=== PATIENT | male | born 1975 | race Caucasian/White ===

== ENCOUNTER 2020-07-20 16:45 | Outpatient (CLI) | payer MEDICARE, MEDICAID, SELFPAY | END 2020-07-20 16:46 | disposition home or self-care (01) | LOC: WPT 02-13 12:08 | PROVIDERS: PCP Family Medicine; Visit Provider Family Medicine | DX: Z46.89 Encounter for fitting and adjustment of other specified devices (principal); M25.561 Pain in right knee | CPT/HCPCS: L1812 ==

== ENCOUNTER → 2020-11-22 10:23 | Outpatient (BNVA) | payer MEDICARE, MEDICAID, SELFPAY | PROVIDERS: PCP Family Medicine; Referring Provider Family Medicine; Visit Provider Physician Assistant | DX: M54.2 Cervicalgia (principal); G89.29 Other chronic pain; M47.812 Spondylosis without myelopathy or radiculopathy, cervical region; M25.78 Osteophyte, vertebrae | CPT/HCPCS: 72050 ==

== ENCOUNTER 2020-12-13 12:45 | Outpatient (CLI) | payer MEDICARE, MEDICAID, SELFPAY ==
--- NOTE | 2020-12-13 13:02 | MR_ITS ---
WS: [id number] MRI CERVICAL SPINE NONCONTRAST HISTORY: CERVICAL DISC DEGENERATION COMPARISON: None available. Technique: Multiplanar, multisequence noncontrast imaging of the cervical spine. Mild straightening of the normal cervical lordosis. No fracture or marrow edema. Signal within the cervical cord is normal. Visualized posterior fossa is unremarkable. Craniocervical junction, C1 and C2 relationship, odontoid process and soft tissues are normal. C2-C3: Normal. C3-C4: Shallow central disc protrusion without cord contact. Small bilateral foraminal osteophytes. C4-C5: Mild bilateral foraminal osteophytes without significant stenosis. C5-C6: Moderate size central to LEFT paracentral disc protrusion. Disc protrusion is contacting and d eforming the ventral thecal sac. There is an additional smaller disc osteophyte proximal RIGHT forame n. Mild central and foraminal stenosis. C6-C7: LEFT paracentral disc osteophyte protrusion causing mild deformity of the LEFT lateral thecal sac and effacement of CSF. Mild osteophytic ridging causing mild foraminal stenosis. C7-T1: Normal. Paraspinal soft tissue are normal. MR/MR cervical spin wo con* [id number] IMPRESSION: 1. Moderate size central to LEFT paracentral disc protrusion at C5-6 contactin g the ventral thecal sac and the cord with displacement. There is an additional smaller disc osteophyte complex in the proximal RIGHT foramen. There is mild c entral and bilateral foraminal stenosis due to disc and osteophyte disease. 2. Mild bilateral foraminal stenosis at C6-7. LEFT paracentral disc osteophyte at C6-7 with mild effacement of CSF. No cord contact. 3. Small bilateral foraminal osteophytes and shallow disc protrusion at C3-4.
== END 2020-12-13 12:46 | disposition home or self-care (01) ==
PROVIDERS: PCP Family Medicine; Visit Provider Physician Assistant
DX: M50.30 Other cervical disc degeneration, unspecified cervical region (principal); M50.222 Other cervical disc displacement at C5-C6 level; M25.78 Osteophyte, vertebrae; M48.02 Spinal stenosis, cervical region
CPT/HCPCS: 72141

== ENCOUNTER → 2021-03-08 12:11 | Outpatient (BNVA) | payer MEDICARE, MEDICAID, SELFPAY | PROVIDERS: PCP Family Medicine; Visit Provider Nurse Practitioner Family | DX: M17.11 Unilateral primary osteoarthritis, right knee (principal); M25.561 Pain in right knee | CPT/HCPCS: 73562 ==

== ENCOUNTER → 2021-04-17 11:40 | Outpatient (BNVA) | payer MEDICARE, MEDICAID, SELFPAY | PROVIDERS: PCP Family Medicine; Referring Provider Nurse Practitioner Family; Visit Provider Specialist | DX: M17.0 Bilateral primary osteoarthritis of knee (principal); M25.561 Pain in right knee | CPT/HCPCS: 73560; 73565 ==

== ENCOUNTER 2021-05-04 11:33 | Outpatient (CLI) | payer MEDICARE, MEDICAID, SELFPAY | END 2021-05-04 11:34 | disposition home or self-care (01) | LOC: SPT 11:34 | PROVIDERS: PCP Family Medicine; Visit Provider Specialist | DX: Z46.89 Encounter for fitting and adjustment of other specified devices (principal); M17.11 Unilateral primary osteoarthritis, right knee | CPT/HCPCS: 97760; L1851 ==

== ENCOUNTER 2021-05-31 15:26 | Outpatient (CLI) | payer MEDICARE, MEDICAID, SELFPAY ==
--- NOTE | 2021-05-31 16:00 | MR_ITS ---
WS: [id number] MRI RIGHT KNEE HISTORY: M25.561 - Pain in right knee COMPARISON: 04/17/2021 Anterior cruciate ligament: Intact. Posterior cruciate ligament: Intact. Medial collateral ligament: Fluid surrounds both sides of the MCL. No tear is identified. There is a small amount of fluid adjacent to the proximal MCL but it does appear to be external to the ligament. Posterior lateral corner structures: Intact. Medial menisci: Abnormal signal in the posterior horn. Blunting of the free edge and increased signal in the free edge is most likely a radial tear. There is increased T2 signal and soft tissue thickeni ng along the posterior medial meniscus Lateral meniscus: Very slight increased signal in the anterior horn near the site of the ACL attachme nt. Probably normal variation but in the signal. Cannot confirm a tear. Extensor mechanism: Distal quadriceps tendon and patellar tendons are intact. Fluid and soft tissue: Small suprapatellar joint effusion. Small amount of fluid at the location of Ruano's cyst. Osseous and articular structures: Patellofemoral compartment: Normal. Medial compartment: Mild narrowing of the medial compartment. There is thinning and fraying along the articular cartilage surface. No full-thickness cartilage defect or extension to the marrow. No marro w edema. Small osteophytes at the joint line. Lateral compartment: Very mild narrowing of the lateral compartment. 4 mm osteochondral defect along the tibial plateau surface. MR/MR knee RT wo con* [id number] IMPRESSION: 1. Radial tear resulting in blunting of the free edge posterior horn medial me niscus with adjacent synovitis. 2. Mild diffuse thinning and fraying of the articular cartilage of the medial compartment. 3. 4 mm osteochondral defect lateral tibial plateau. 4. Small amount of fluid surrounding the MCL. Probably related to degenerative changes in the medial compartment and not MCL sprain.
== END 2021-05-31 15:27 | disposition home or self-care (01) ==
LOC: RAD 15:33
PROVIDERS: PCP Family Medicine; Visit Provider Specialist
DX: S83.241A Other tear of medial meniscus, current injury, right knee, initial encounter (principal); X58.XXXA Exposure to other specified factors, initial encounter
CPT/HCPCS: 73721

== ENCOUNTER → 2021-07-06 09:59 | Outpatient (BNVA) | payer MEDICARE, MEDICAID, SELFPAY | PROVIDERS: PCP Family Medicine; Visit Provider Specialist | DX: M17.11 Unilateral primary osteoarthritis, right knee (principal) | CPT/HCPCS: 20610; 99213; J1100; J2795; J3301 ==

== ENCOUNTER → 2021-08-23 14:36 | Outpatient (BNVA) | payer MEDICARE, MEDICAID, SELFPAY | PROVIDERS: PCP Family Medicine; Visit Provider Family Medicine | DX: Z02.83 Encounter for blood-alcohol and blood-drug test (principal) | CPT/HCPCS: 80307 ==

== ENCOUNTER → 2021-11-09 16:36 | Outpatient (BNVA) | payer MEDICARE, MEDICAID, SELFPAY | PROVIDERS: PCP Family Medicine; Visit Provider Family Medicine | DX: E78.5 Hyperlipidemia, unspecified (principal); I10 Essential (primary) hypertension; Z79.899 Other long term (current) drug therapy | CPT/HCPCS: 80053; 80061; 83036; 83721; 84443; 85025 ==

== ENCOUNTER → 2022-02-20 08:51 | Outpatient (BNVA) | payer MEDICARE, MEDICAID, SELFPAY | PROVIDERS: PCP Family Medicine; Referring Provider Family Medicine; Visit Provider Specialist | DX: G43.711 Chronic migraine without aura, intractable, with status migrainosus (principal); M50.20 Other cervical disc displacement, unspecified cervical region; R20.2 Paresthesia of skin; M47.22 Other spondylosis with radiculopathy, cervical region | CPT/HCPCS: 99204 ==

== ENCOUNTER → 2022-06-26 09:40 | Outpatient (BNVA) | payer MEDICARE, MEDICAID, SELFPAY | PROVIDERS: PCP Family Medicine; Visit Provider Nurse Practitioner | DX: F41.9 Anxiety disorder, unspecified (principal); I10 Essential (primary) hypertension; F32.9 Major depressive disorder, single episode, unspecified; E78.5 Hyperlipidemia, unspecified | CPT/HCPCS: 80053; 80061; 83721; 84403; 84443; 85025 ==

== ENCOUNTER → 2022-07-20 13:57 | Outpatient (BNVA) | payer MEDICARE, MEDICAID, SELFPAY | PROVIDERS: PCP Family Medicine; Visit Provider Nurse Practitioner | DX: R30.0 Dysuria (principal); F41.9 Anxiety disorder, unspecified | CPT/HCPCS: 81000 ==

== ENCOUNTER 2022-07-29 13:47 | Emergency (ER) | payer MEDICARE, MEDICAID, SELFPAY ==
[2022-07-29 13:59] VITALS: BP 151/85; PULSE 82; RESP 18; TEMP 36.6; O2SAT 96; BMI 36.2
--- NOTE | 2022-07-29 14:20 | XRR_ITS ---
PROCEDURE INFORMATION: Exam: XR Left Hip Exam date and time: 07/29/2022 3:06 PM Age: 46 years old Clinical indication: Hip pain; Left hip; Additional info: Left hip pain TECHNIQUE: Imaging protocol: Radiologic exam of the left hip. Views: 2 or 3 views hip with pelvis when performed. COMPARISON: No relevant prior studies available. FINDINGS: Bones/joints: Unremarkable. No acute fracture. Hip joint appears maintained. Partially visualized hardware at the lumbosacral junction. Soft tissues: Unremarkable. XR/XR hip LT 2-3V wo/w pel* [id number] IMPRESSION: No acute findings.
--- NOTE | 2022-07-29 14:30 | ED_ITS ---
HPI - Back Pain/Injury General: Chief Complaint: Back Pain/Injury Stated Complaint: back and left hip pain Time Seen by Provider: 07/29/22 14:05 History of Present Illness: Patient is a 46-year-old male who comes to the ED with left hip pain. Patient states he has a history of chronic low back pain. Approximately a month ago he started having some pain in his left hip. It is progressed and gotten worse and he states that it feels separate than his lower back pain. He rates his pain currently 9 out of 10. He states that it feels like the pain is in his hip joint. Denies any injury or trauma to cause pain. He went and saw his PCP a couple days ago and they told him it was likely sciatica and gave him a shot of steroids. Associated symptoms: Deny abdominal pain, chills, dysuria, fatigue, fever(s), hematuria, nausea or vomiting Review of Systems Const: Denies: fever(s), chills or fatigue Eyes: Denies: change in vision or eye discomfort ENMT: Denies: throat pain, odynophagia, nasal discharge or nasal congestion Card: Denies: chest pain, palpitations, edema, swelling of feet/ankles, dyspnea on exertion or orthopnea Resp: Denies: dyspnea, productive cough or non-productive cough GI: Denies: abdominal pain, nausea, vomiting, diarrhea, constipation or hematochezia : Denies: flank pain, difficulty urinating, dysuria or hematuria Musc: Reports: extremity pain (Left hip); Denies: neck pain, back pain or extremity swelling Skin/Breast: Denies: rash or new lesions Neuro: Denies: headache(s), numbness in extremities or weakness in extremities PFSH ED PFSH: Medical History Anxiety Depression Essential hypertension Hidradenitis suppurativa Scabies infestation Tricompartment osteoarthritis of right knee Surgical History History of lumbar spinal fusion History of thoracic surgery Social History Smoking and tobacco status: current every day smoker Physical Exam Const: COMMON NORMALS: no acute distress, patient oriented x3 and alert HENMT: COMMON NORMALS: normocephalic HEAD & SCALP: normocephalic MOUTH: Normal oral and palatal mucosa present THROAT: posterior oropharynx normal and uvula midline Neck/C-Spine: COMMON NORMALS: supple GENERAL: Yes normal visual inspection Resp: COMMON NORMALS: normal respiratory effort, No retractions, No use of accessory muscles and clear to auscultation bilaterally AUSCULTATION: clear to auscultation bilaterally Cardio: COMMON NORMALS: regular rate, regular rhythm, S1 normal heart sound present, S2 normal heart sound present, No gallops present (Cardio), No clicks present (Cardio), No murmurs present (Cardio) and Peripheral pulses 2+ throughout RATE: regular rate RHYTHM: regular rhythm HEART SOUNDS: S1 normal heart sound present and S2 normal heart sound present PERIPHERAL PULSES: Peripheral pulses 2+ throughout GI: COMMON NORMALS: Normal to inspection, nondistended, normoactive bowel sounds present, Soft to palpation, non-tender and no masses PALPATION: Yes Soft to palpation : COMMON NORMALS: Yes no CVA tenderness BLADDER/KIDNEY EXAM: Yes no CVA tenderness Back/Pelvis: COMMON NORMALS: no CVA tenderness Extremity: COMMON NORMALS: normal to inspection NARRATIVE EXTREMITY EXAM: Tenderness to palpation over left greater trochanter of the hip. Neurovascular intact distally. Neuro: COMMON NORMALS: patient oriented x3 SENSORIUM/ORIENTATION: Yes alert GAIT: Yes Normal gait present Skin: GENERAL SKIN EXAM: dry skin Course Vital Signs: Vital signs: Vital Signs Temperature 97.9 F 07/29/22 13:59 Pulse Rate 82 07/29/22 13:59 Respiratory Rate 18 07/29/22 13:59 Blood Pressure 151/85 07/29/22 13:59 Pulse Oximetry 96 07/29/22 13:59 Oxygen Delivery Me thod Room Air 07/29/22 13:59 MDM - Back Pain/Injury Medical Decision Making Patient is a 46-year-old male who comes to the ED with left hip pain. Patient states he has a history of chronic low back pain. Approximately a month ago he started having some pain in his left hip. It is progressed and gotten worse and he states that it feels separate than his lower back pain. He rates his pain currently 9 out of 10. He states that it feels like the pain is in his hip joint. Denies any injury or trauma to cause pain. He went and saw his PCP a couple days ago and they told him it was likely sciatica and gave him a shot of steroids. Vitals are stable. Patient appears nontoxic in no acute distress and pain. Tenderness to palpation over left greater trochanter of the hip. Neurovascular intact distally. X-ray of left hip show no acute fractures or findings. He was given a dose of hydrocodone here in the ED to help with pain and that he was stable for discharge home. He was sent home with a prescription for meloxicam. He was diagnosed with left hip pain. Told to follow-up with his PCP within the next week for reevaluation. Return to ED precautions given. Patient understood and agreed with plan. Labs Radiology Impressions Hip/Pelvis X-Ray 07/29/22 14:20 IMPRESSION: No acute findings. Discharge Plan Discharge Patient Disposition: Home Clinical Impression: Left hip pain Condition: Stable Prescriptions: New meloxicam 15 mg tablet 15 mg PO DAILY PRN (Reason: pain) Qty: 20 0RF No Action (DME) r knee brace See Rx Instructions .Route .MEDSUPPLY Qty: 1 0RF Rx Instructions: As directed celecoxib [Celebrex] 200 mg capsule 200 mg PO DAILY Qty: 30 1RF amitriptyline 25 mg tablet 25 mg PO .nightly Qty: 90 0RF baclofen 5 mg tablet 5 mg PO TID 30 Days Qty: 90 0RF clonidine HCl 0.1 mg tablet 0.1 mg PO DAILY PRN (Reason: hypertensive emergency) 30 Days Qty: 30 0RF Rx Instructions: for SBP>180 or DBP>100 sertraline [Zoloft] 50 mg tablet 75 mg PO DAILY Qty: 45 3RF clonazepam 1 mg tablet 1 mg PO TID PRN (Reason: anxiety) 30 Days Qty: 90 0RF Rx Instructions: refill 11/04/2021 sulfamethoxazole-trimethoprim [Bactrim DS] 800-160 mg tablet 1 tab PO Q12H Qty: 14 0RF methylprednisolone [Medrol (Hieu)] 4 mg tablets,dose pack See Rx Instructions PO PER PKG DIR Qty: 21 0RF Rx Instructions: PO PER PKG DIR (DME) MEDIAL 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 CLERK BRACE See Rx Instructions .Route .MEDSUPPLY Qty: 1 0RF Rx Instructions: As directed topiramate [Topamax] 100 mg tablet 100 mg PO DAILY Qty: 30 5RF lisinopril-hydrochlorothiazide 20-25 mg tablet 1 tab PO DAILY Qty: 90 2RF rosuvastatin [Crestor] 5 mg tablet 5 mg PO DAILY Qty: 30 3RF levothyroxine 25 mcg capsule 25 mcg PO DAILY Qty: 30 1RF fenofibrate nanocrystallized 145 mg tablet 145 mg PO DAILY Qty: 30 2RF ondansetron 4 mg tablet,disintegrating 4 mg PO Q8H PRN (Reason: nausea and vomiting) Qty: 30 0RF pantoprazole [Protonix] 20 mg tablet,delayed release (DR/EC) 20 mg PO DAILY Qty: 30 0RF Discharge Orders: Discharge ED (Routine); Ordered 07/29/22 Ordered By: Navneet Valdes Referrals: Andrew Cummins MD [Primary Care Provider] - Discharge Diet: Regular Discharge Activity: Increase activity as tolerated Activity Restrictions/Additional Instructions: Follow-up with medical provider as directed in the next 5 to 7 days for reevaluation. Take medications as prescribed. Return to the ER or your medical provider if condition worsens. Please read and understand discharge instructions. Thank you for choosing [facility] for your healthcare needs today. Please realize this is an emergency room and that we are providing you with a medical screening exam and this may not be complete and all inclusive of all the testing and or work up that you may need to determine your ailment or severity of your illness. It is very important that you follow up as instructed or that you return to the Emergency Department should you have concerns or if your condition changes or worsens in any way. Coding Level of Care Code ED Con[employer] Pave[employer] Installer for Edil Sheikh
[2022-07-29] MEDS: HYDROcodone-acetaminophen 7.5-325 mg Tablet 1 TAB PO (14:53)
== END 2022-07-29 16:18 | disposition home or self-care (01) ==
PROVIDERS: Emergency Provider Physician Assistant; PCP Family Medicine
DX: M25.552 Pain in left hip (principal); I10 Essential (primary) hypertension; F17.210 Nicotine dependence, cigarettes, uncomplicated
CPT/HCPCS: 73502; 99283

== ENCOUNTER 2022-08-21 15:44 | Outpatient (CLI) | payer MEDICARE, MEDICAID, SELFPAY ==
--- NOTE | 2022-08-21 16:00 | MR_ITS ---
WS: [id number] MRI LUMBAR SPINE NONCONTRAST TECHNIQUE: Sagittal T1, T2 and STIR imaging. Axial T1 and T2 imaging. CLINICAL INFORMATION: M54.9 - Dorsalgia, unspecified COMPARISON: None. FINDINGS: Mild lumbar curve. Grade 1 anterolisthesis L4 on L5. Severe central canal stenosis L4-L5. Prior posto perative changes pedicle screw fixation L5-S1 with laminectomy defects. Partially visualized postoper ative changes in the lower thoracic spine. L1-L2: Normal. L2-L3: Mild facet arthropathy. Spinal canal and foramen are patent. L3-L4: Slight retrolisthesis. Narrowing of the LEFT subarticular recess. LEFT facet arthropathy with LEFT foraminal protrusion. Moderate LEFT foraminal narrowing. Mild RIGHT foraminal narrowing. Mild ce ntral canal stenosis at this level. L4-L5: Grade 1 anterolisthesis. Severe central canal stenosis with impingement traversing L5 nerve ro ots. Advanced facet arthropathy. Severe RIGHT foraminal narrowing. Moderate LEFT foraminal narrowing. L5-S1: Osteophytic ridging L5-S1 with bony fusion of the disc space. Impingement on the LEFT S1 nerve root in the subarticular recess. Mild LEFT foraminal narrowing. RIGHT foramen is patent. Moderate fa cet arthropathy. Visualized pelvic bony structures: Normal. Paravertebral soft tissues: Normal. Tiny central protrusion C5-C6 with slight contact of the cervical cord. Cervical spine telephone answerer imaging at MR/MR lumbar spine wo con* [id number] IMPRESSION: 1. Severe central canal stenosis L4-L5 due to disc bulging combination with gr michael 1 anterolisthesis and advanced facet arthropathy. Impingement traversing L5 nerve roots bilaterally RIGHT greater than LEFT. 2. Severe RIGHT L4-L5 foraminal narrowing. Moderate LEFT L4-L5 foraminal narro wing. 3. Subarticular disc bulging L3-L4 impinges the LEFT subarticular recess and t raversing LEFT L4 nerve root. 4. Moderate LEFT foraminal narrowing L3-L4 impinges the exiting LEFT L3 nerve root. Mild central canal stenosis at this level. 5. Disc space fusion L5-S1 with osteophytic ridging. Impingement traversing LE FT S1 nerve root in the subarticular recess. Mild LEFT L5-S1 foraminal narrowin g.
== END 2022-08-21 15:45 | disposition home or self-care (01) ==
LOC: RAD 15:47
PROVIDERS: PCP Family Medicine; Visit Provider Nurse Practitioner
DX: M48.061 Spinal stenosis, lumbar region without neurogenic claudication (principal); G89.29 Other chronic pain; M51.36 Other intervertebral disc degeneration, lumbar region; M25.78 Osteophyte, vertebrae; M43.27 Fusion of spine, lumbosacral region
CPT/HCPCS: 72148

== ENCOUNTER → 2022-09-25 16:08 | Outpatient (BNVA) | payer MEDICARE, MEDICAID, SELFPAY | PROVIDERS: PCP Family Medicine; Visit Provider Orthopaedic Surgery | DX: M48.062 Spinal stenosis, lumbar region with neurogenic claudication; Z98.1 Arthrodesis status; G89.29 Other chronic pain | CPT/HCPCS: 72110; 99214 ==

== ENCOUNTER 2022-11-29 07:25 | Outpatient (CLI) | payer MEDICARE, MEDICAID, SELFPAY ==
--- NOTE | 2022-11-29 07:15 | US_ITS ---
WS: [id number] ULTRASOUND SOFT TISSUES LEFT axilla. HISTORY: R59.1 - Generalized enlarged lymph nodes COMPARISON: None available. TECHNIQUE: 2-D and color Doppler imaging is submitted. There is a complex solid and cystic mass in the LEFT axilla corresponding to the palpable abnormality . Irregular shaped mass with some increased vascularity. Mass measures at least 3.7 x 2.4 x 3.3 cm. T he borders are slightly irregular. Mild edematous changes noted in the soft tissues. There may be jeremie e adjacent small lymph nodes. IMPRESSION: Solid mass with increased vascularity in the LEFT axilla. Corresponds to the palpable abnormality. Re commend follow-up chest CT with IV contrast. This is suspicious for a solid mass. Differential includ es abnormal lymph node, solid soft tissue mass or abscess.
== END 2022-11-29 07:26 | disposition home or self-care (01) ==
LOC: RAD 07:25
PROVIDERS: PCP Family Medicine; Visit Provider Nurse Practitioner
DX: R22.32 Localized swelling, mass and lump, left upper limb (principal)
CPT/HCPCS: 76882

== ENCOUNTER 2022-12-11 17:16 | Outpatient (CLI) | payer MEDICARE, MEDICAID, SELFPAY ==
--- NOTE | 2022-12-11 17:30 | CTR_ITS ---
PROCEDURE INFORMATION: Exam: CT Chest With Contrast; Diagnostic Exam date and time: 12/11/2022 5:29 PM Age: 47 years old Clinical indication: Mass, lump, or swelling in the chest; Additional info: R22.30 - localized swelling, mass and lump, unspecified u. . . , Ultrasound done; Shows a possible solid mass TECHNIQUE: Imaging protocol: Diagnostic computed tomography of the chest with contrast. Radiation optimization: All CT scans at this facility use at least one of these dose optimization techniques: automated exposure control; mA and/or kV adjustment per patient size (includes targeted exams where dose is matched to clinical indication); or iterative reconstruction. Contrast material: OMNI 350; Contrast volume: 95 ml; Contrast route: INTRAVENOUS (IV); REPORTING DATA: Count of CT and Cardiac NM exams in prior 12 months: This patient has received 0 known CTs and 0 known cardiac nuclear medicine studies in the 12 months prior to the current study. COMPARISON: Ultrasound soft tissue 11/29/2022. RADIATION DOSE METRICS: Total DLP (mGy-cm): 604.11 FINDINGS: Lungs: 4 x 2 mm lingular nodule image . No other nodules or infiltrates. Pleural spaces: Unremarkable. No pneumothorax. No pleural effusion. Heart: Unremarkable. No cardiomegaly. No pericardial effusion. Lymph nodes: Unremarkable. No enlarged lymph nodes. Vasculature: Unremarkable. No aortic aneurysm. Liver: Fatty liver. Gallbladder and bile ducts: Cholecystectomy clips. Spleen: Splenomegaly at least 140 mm although the spleen is incompletely visualized. Bones/joints: Fixation involving the lower dorsal spine. Soft tissues: There is a heterogeneous both cystic and solid appearing left axillary mass measuring 61 x 38 x 34 mm. Image 04/24. CT/CT chest w con* [id number] IMPRESSION: 1. Irregular cystic and solid mass left axilla. Suspicious for possible neoplastic process. Consider pathologic sampling. 2. Small lingular lung nodule peripherally. Follow-up recommendations will depend upon the pathology of the axillary lesion.
[2022-12-11] MEDS: iohexol 350 mg/mL 500 mL Btl (per mL) IV (17:35)
== END 2022-12-11 17:17 | disposition home or self-care (01) ==
PROVIDERS: PCP Family Medicine; Visit Provider Nurse Practitioner
DX: R22.32 Localized swelling, mass and lump, left upper limb (principal); R22.1 Localized swelling, mass and lump, neck
CPT/HCPCS: 71260; Q9967

== ENCOUNTER → 2023-01-10 14:01 | Outpatient (BNVA) | payer MEDICARE, MEDICAID, SELFPAY | PROVIDERS: PCP Family Medicine; Referring Provider Nurse Practitioner; Visit Provider Surgery | DX: R59.1 Generalized enlarged lymph nodes (principal) | CPT/HCPCS: 80053; 85025; 99205 ==

== ENCOUNTER 2023-01-23 10:51 | Outpatient (CLI) | payer MEDICARE, MEDICAID, SELFPAY ==
--- NOTE | 2023-01-23 | US_ITS ---
WS: [id number] ULTRASOUND GUIDED BIOPSY LEFT AXILLARY MASS. ULTRASOUND-GUIDED ASPIRATION POSSIBLE ABSCESS LEFT AXILLA. HISTORY: Mass of axilla Procedure, risks, and complications are explained to the patient. Consent was obtained. Skin is clean sed with ChloraPrep and anesthetized with 1% buffered lidocaine. After reviewing the prior imaging studies suspicious for abscess in the LEFT axilla along with comple x soft tissue mass which could be an abnormal lymph node. Multiple core biopsies are performed of the complex mass in the LEFT axilla. Small core biopsies are performed and placed in RPMI for lymph node analysis. Additional multiple core biopsies are performed and placed in formalin. Additional aspirate is obtained. The aspirate is puslike and very turbid. Specimen placed in a separa te sterile container for culture, sensitivity and Gram stain. Patient tolerated the procedure well. IMPRESSION: 1. Uncomplicated core biopsy LEFT axillary mass. Specimen will be sent for lymph node analysis and fo r histopathology. 2. Additional aspirate was obtained as this mass was suspicious for an abscess. Pus material was drai praveen. At least 10 cc were drained. Culture and sensitivity and Gram stain will be obtained.
[2023-01-24 14:27] LABS: Lymphoma Profile (BBPL) See Report
== END 2023-01-23 10:52 | disposition home or self-care (01) ==
PROVIDERS: PCP Family Medicine; Visit Provider Surgery
DX: R22.32 Localized swelling, mass and lump, left upper limb (principal); I96 Gangrene, not elsewhere classified
CPT/HCPCS: 19000; 38505; 76942; 87070; 87075; 87205; 88184; 88185; 88307

== ENCOUNTER → 2023-02-13 10:07 | Outpatient (BNVA) | payer MEDICARE, MEDICAID, SELFPAY | PROVIDERS: PCP Family Medicine; Visit Provider Nurse Practitioner Family | DX: R07.9 Chest pain, unspecified (principal); R07.89 Other chest pain; I10 Essential (primary) hypertension; R91.1 Solitary pulmonary nodule | CPT/HCPCS: 93005 ==

== ENCOUNTER → 2023-05-14 10:44 | Outpatient (BNVA) | payer MEDICARE, MEDICAID, SELFPAY | PROVIDERS: PCP Family Medicine; Visit Provider Nurse Practitioner Family | DX: M67.921 Unspecified disorder of synovium and tendon, right upper arm (principal); M25.529 Pain in unspecified elbow; G89.29 Other chronic pain | CPT/HCPCS: 73080 ==

== ENCOUNTER → 2023-07-03 14:09 | Outpatient (BNVA) | payer MEDICARE, MEDICAID, SELFPAY | PROVIDERS: PCP Family Medicine; Visit Provider Specialist | DX: M67.921 Unspecified disorder of synovium and tendon, right upper arm (principal); M25.521 Pain in right elbow; G89.29 Other chronic pain; M19.021 Primary osteoarthritis, right elbow | CPT/HCPCS: 73080; 99214 ==

== ENCOUNTER → 2023-08-12 11:53 | Outpatient (BNVA) | payer MEDICARE, MEDICAID, SELFPAY | PROVIDERS: PCP Family Medicine; Visit Provider Nurse Practitioner Family | DX: S93.402A Sprain of unspecified ligament of left ankle, initial encounter (principal); X58.XXXA Exposure to other specified factors, initial encounter | CPT/HCPCS: 73610 ==

== ENCOUNTER 2023-12-17 17:32 | Emergency (ER) | payer MEDICARE, MEDICAID, SELFPAY ==
[2023-12-17] VITALS (10 sets, daily range): BP systolic 130–199; BP diastolic 73–108; PULSE 71–101; RESP 16–22; TEMP 36.7; O2SAT 95–100; BMI 34.4
--- NOTE | 2023-12-17 17:49 | XRR_ITS ---
PROCEDURE INFORMATION: Exam: XR Chest Exam date and time: 12/17/2023 6:13 PM Age: 48 years old Clinical indication: Other: Weakness TECHNIQUE: Imaging protocol: Radiologic exam of the chest. Views: 1 view. COMPARISON: CT chest w con* [id number] 12/11/2022 5:29 PM FINDINGS: Lungs: Unremarkable. No consolidation. Pleural spaces: Unremarkable. No pleural effusion. No pneumothorax. Heart/Mediastinum: Unremarkable. No cardiomegaly. Bones/joints: Unremarkable. XR/XR chest 1V portable [id number] IMPRESSION: As above.
--- NOTE | 2023-12-17 17:53 | CTR_ITS ---
PROCEDURE INFORMATION: Exam: CT Abdomen And Pelvis With Contrast Exam date and time: 12/17/2023 6:39 PM Age: 48 years old Clinical indication: Abdominal pain; Prior surgery; Surgery date: 6+ months; Surgery type: Lumbar fusion; Additional info: Abd pain TECHNIQUE: Imaging protocol: Computed tomography of the abdomen and pelvis with contrast. Radiation optimization: All CT scans at this facility use at least one of these dose optimization techniques: automated exposure control; mA and/or kV adjustment per patient size (includes targeted exams where dose is matched to clinical indication); or iterative reconstruction. Contrast material: OMNI 350; Contrast volume: 100 ml; Contrast route: INTRAVENOUS (IV); COMPARISON: CR XR hip LT 2-3V wo/w pel* [id number] 07/29/2022 3:06 PM RADIATION DOSE METRICS: Total DLP (mGy-cm): 954.43 FINDINGS: Lungs: Stable 5 mm right lower lobe pulmonary nodule. Liver: Hepatic steatosis. Otherwise the liver is unremarkable. Gallbladder and biliary ducts: Status post cholecystectomy. Pancreas: Normal. No ductal dilation. Spleen: Normal. No splenomegaly. Adrenal glands: Normal. No mass. Kidneys and ureters: Bilateral nonobstructing renal calculi. Stomach and bowel: Sigmoid diverticulosis without adjacent fat stranding. No bowel obstruction. Moderate amount of retained stool in the colon from constipation. Appendix: No evidence of appendicitis. Intraperitoneal space: Unremarkable. No free air. No significant fluid collection. Vasculature: Unremarkable. No abdominal aortic aneurysm. Lymph nodes: Unremarkable. No enlarged lymph nodes. Urinary bladder: Unremarkable as visualized. Reproductive: Unremarkable as visualized. Bones/joints: Multilevel degenerative changes of the visualized spine. Posterior fusion hardware is present within the lower thoracic and lower lumbar spine . No definite perihardware lucencies.. Soft tissues: Unremarkable. CT/CT abdomen pelvis w con* [id number] IMPRESSION: No acute intra-abdominal or intrapelvic process. Incidental/chronic findings as above.
--- NOTE | 2023-12-17 17:55 | W.ED.WEAKNES ---
HPI - Weakness General: Chief complaint: Weakness Stated complaint: covid symptoms Time Seen by Provider: 12/17/23 17:49 Source: patient Mode of arrival: ambulatory Limitations: no limitations History of Present Illness: 48-year-old male who states that over the last month he has been having bodyaches he states he has been having abdominal pain he states is also had some dysuria along with vomiting and diarrhea. He states he is seen at [facility] month ago was diagnosed UTI but states he has not had any improvement he denies any fever he states she is feels very weak tired he does smoke weed daily. Denies any high fevers. Associated symptoms: Reports chills, dysuria, nausea and vomiting; Denies chest pain, fever(s) or headache(s) Review of Systems Const: Reports: chills, body aches, change in appetite and fatigue; Denies: fever(s) Eyes: Denies: blurry vision or eye discomfort ENMT: Denies: throat pain or dental pain Card: Denies: chest pain Resp: Denies: dyspnea GI: Reports: abdominal pain, nausea, vomiting and diarrhea : Reports: dysuria Musc: Reports: back pain; Denies: neck pain Skin/Breast: Denies: rash Neuro: Denies: headache(s) PFSH ED PFSH: Medical History BPH associated with nocturia Hydrocele, bilateral Low back pain Elevated serum creatinine Left ankle sprain Arthritis of elbow, right, degenerative Chronic elbow pain Tendinopathy of right elbow Excessive cerumen in left ear canal Nasal congestion Otitis media, unspecified, bilateral Lung nodule Chest pain Tricompartment osteoarthritis of right knee Scabies infestation Essential hypertension Depression Anxiety Surgical History (Updated 09/24/23 @ 14:58 by ANGELES Chin) Hx of colonoscopy 2-3 yrs ago History of lumbar spinal fusion History of thoracic surgery Family History Father Cancer colon cancer Mother Cancer lung Breast cancer Social History Smoking and tobacco/nicotine status: never used tobacco/nicotine Physical Exam Const: COMMON NORMALS: no acute distress, patient oriented x3 and healthy appearing HENMT: COMMON NORMALS: normocephalic and atraumatic HEAD & SCALP: normocephalic and atraumatic Neck/C-Spine: COMMON NORMALS: full ROM and supple Chest: COMMONS NORMALS: normal inspection of the chest Resp: COMMON NORMALS: normal respiratory effort, No retractions, No use of accessory muscles and clear to auscultation bilaterally AUSCULTATION: clear to auscultation bilaterally Cardio: COMMON NORMALS: regular rate, regular rhythm and No murmurs present (Cardio) RATE: regular rate RHYTHM: regular rhythm GI: COMMON NORMALS: Normal to inspection, nondistended, normoactive bowel sounds present, Soft to palpation, non-tender and no masses PALPATION: Yes Soft to palpation Extremity: COMMON NORMALS: normal to inspection and full ROM Neuro: COMMON NORMALS: patient oriented x3, moves all extremities and no focal motor deficits Psych: COMMON NORMALS: mental status grossly normal, Normal thought process present and cooperative THOUGHT PROCESS: Normal thought process present Skin: COMMON NORMALS: no rashes or lesions noted and no wounds GENERAL SKIN EXAM: no rashes or lesions noted Course Vital Signs: Vital signs: Vital Signs Temperature 98.0 F 12/17/23 17:40 Pulse Rate 101 H 12/17/23 21:38 Respiratory Rate 16 12/17/23 21:38 Blood Pressure 130/73 12/17/23 21:38 Pulse Oximetry 98 12/17/23 21:38 Oxygen Delivery Me thod Room Air 12/17/23 21:00 MDM - Weakness Medical Decision Making Patient presents here with generalized weakness along with back pain and fatigue it has been going on for months blood work heart enzymes imaging here is all normal his blood pressure has improved here he does take blood pressure meds at home we will get him follow-up with Dr. Bailey he is to return if he worsening he understands agrees to plan. Medical Records I reviewed the patient's medical records. Lab Data I reviewed the patient's lab results. 12/17/23 19:07 12/17/23 19:07 Radiology Impressions Chest X-Ray 12/17/23 17:49 IMPRESSION: As above. Abdomen/Pelvis CT 12/17/23 17:53 IMPRESSION: No acute intra-abdominal or intrapelvic process. Incidental/chronic findings as above. Laboratory Results WBC 10.75 10^3/uL (3.29-11.43) 12/17/23 19:07 RBC 4.28 10^6/uL (3.85-5.65) 12/17/23 19:07 Hgb 12.30 g/dL (11.27-16.99) 12/17/23 19:07 Hct 38.8 % (37-53) 12/17/23 19:07 MCV 90.7 fl (82-101) 12/17/23 19:07 MCH 28.7 pg (27-33) 12/17/23 19:07 MCHC 31.7 g/dL (30-55) 12/17/23 19:07 RDW 12.8 % (12.1-15.1) 12/17/23 19:07 Plt Count 249 10^3/cmm (157-399) 12/17/23 19:07 MPV 10.5 fL (7.4-10.4) H 12/17/23 19:07 Neut % (Auto) 66.7 % 12/17/23 19:07 Lymph % (Auto) 25.4 % 12/17/23 19:07 Atkinson % (Auto) 7.3 % 12/17/23 19:07 Eos % (Auto) 0.1 % 12/17/23 19:07 Baso % (Auto) 0.2 % 12/17/23 19:07 Neut # (Auto) 7.17 10^3/uL (1.8-7.7) 12/17/23 19:07 Lymph # (Auto) 2.7 10^3/uL (0.8-4.8) 12/17/23 19:07 Atkinson # (Auto) 0.8 10^3/uL (0.2-0.9) 12/17/23 19:07 Eos # (Auto) 0.0 10^3/uL (0.0-0.8) 12/17/23 19:07 Baso # (Auto) 0.0 10^3/uL (0.0-0.1) 12/17/23 19:07 Nucleated RBC % (auto) 0 % 12/17/23 19:07 Nucleated RBCs # 0.0 /100WBC 12/17/23 19:07 Sodium 137 mmol/L (136-145) 12/17/23 19:07 Potassium 3.9 mmol/L (3.5-5.1) 12/17/23 19:07 Chloride 105 mmol/L (98-107) 12/17/23 19:07 Carbon Dioxide 23 mmol/L (22-29) 12/17/23 19:07 Anion Gap 12.9 (5-19) 12/17/23 19:07 BUN 11 mg/dL (6-20) 12/17/23 19:07 Creatinine 1.0 mg/dL (0.7-1.2) 12/17/23 19:07 GFR Calculation 80.4 mL/min (90-130) L 12/17/23 19:07 Glucose 84 mg/dL (65-115) 12/17/23 19:07 Calculated Osmolality 283 mOsm/kg (285-295) L 12/17/23 19:07 Calcium 8.4 mg/dL (8.5-10.5) L 12/17/23 19:07 Total Bilirubin 0.5 mg/dL (0.15-1.2) 12/17/23 19:07 AST 18 U/L (0-40) 12/17/23 19:07 ALT 29 U/L (0-41) 12/17/23 19:07 Alkaline Phosphatase 98 U/L (40-130) 12/17/23 19:07 Troponin T Baseline < 6 ng/L (0-15) 12/17/23 19:07 Troponin T 120 Minute 7.07 ng/L (0-15) 12/17/23 20:55 Delta Troponin T 1.84664 ABS# (0-10) 12/17/23 20:55 Total Protein 6.2 g/dL (6.6-8.7) L 12/17/23 19:07 Albumin 4.0 g/dL (3.5-5.2) 12/17/23 19:07 Globulin 2.2 g/dL (1.3-4.6) 12/17/23 19:07 Lipase 30 U/L (13-60) 12/17/23 19:07 TSH 0.70 uIU/mL (0.27-4.20) 12/17/23 19:07 Urine Color Yellow (Yellow) 12/17/23 19:00 Urine Appearance Clear (CLEAR) 12/17/23 19:00 Urine pH 7.5 (5-7) 12/17/23 19:00 Ur Specific [place] 1.055 (1.005-1.030) H 12/17/23 19:00 Urine Protein Negative (Negative) 12/17/23 19:00 Urine Glucose (UA) Negative (Normal) 12/17/23 19:00 Urine Ketones Negative (Negative) 12/17/23 19:00 Urine Blood Negative (Negative) 12/17/23 19:00 Urine Nitrate Negative (Negative) 12/17/23 19:00 Urine Bilirubin Negative (Negative) 12/17/23 19:00 Urine Urobilinogen 1.0 mg/dL (Negative) 12/17/23 19:00 Ur Leukocyte Esterase Negative (Negative) 12/17/23 19:00 Urine RBC 0-2 /hpf (0-2) 12/17/23 19:00 Urine WBC 0-5 /hpf (0-5) 12/17/23 19:00 Ur Squamous Epith Cells 0-5 /hpf (0-5) 12/17/23 19:00 Amorphous Sediment Not Reportable 12/17/23 19:00 Urine Bacteria None seen /hpf (NONE) 12/17/23 19:00 Hyaline Casts 0.81 /lpf 12/17/23 19:00 Coronavirus (PCR) Negative (Negative) 12/17/23 18:15 Influenza A (PCR) Negative (Negative) 12/17/23 18:15 Influenza Type B (PCR) Negative (Negative) 12/17/23 18:15 RSV (PCR) Negative (Negative) 12/17/23 18:15 All radiology interpretation(s) finalized by discharge EKG Data EKG 1: I personally reviewed and interpreted this EKG as follows: EKG interpretation date: 12/17/23 EKG interpretation time: 17:56 Interpretation: nsr hr [address] elevation qrs 106 qtc 394 EKG 2: I personally reviewed and interpreted this EKG as follows: EKG interpretation date: 12/17/23 EKG interpretation time: 20:01 Interpretation: nsr hr [address] or t wave abnormalities qrs 108 qtc 414 Discharge Plan Discharge Patient Disposition: Home Clinical Impression: Weakness Chronic back pain Qualifiers: Back pain location: low back pain Back pain laterality: unspecified Sciatica presence: with sciatica Sciatica laterality: bilateral sciatica Qualified Code(s): M54.41 - Lumbago with sciatica, right side Condition: Stable Prescriptions: No Action (DME) r knee brace See Rx Instructions .Route .MEDSUPPLY Qty: 1 0RF Rx Instructions: As directed sertraline [Zoloft] 50 mg tablet 75 mg PO DAILY Qty: 45 3RF telmisartan [Micardis] 40 mg tablet 40 mg PO DAILY Qty: 90 1RF fluticasone propionate 50 mcg/actuation spray,suspension 2 spray intranasal BID 30 Days Qty: 16 0RF Rx Instructions: 2 sprays each nostril BID 1 wk, then 1 spray daily 1 week, then PRN tamsulosin [Flomax] 0.4 mg capsule 0.4 mg PO DAILY 30 Days Qty: 30 1RF clonazepam 1 mg tablet 1 mg PO TID PRN (Reason: anxiety attack) Qty: 60 2RF diclofenac sodium 1 % gel 2 g topical QID meloxicam 15 mg tablet 15 mg PO DAILY 30 Days Qty: 30 1RF Rx Instructions: Do Not take with any other NSAIDs prednisone 20 mg tablet 20 mg PO DAILY Qty: 20 1RF Rx Instructions: 3 tabs a day for 3 days then 2 tabs a day for 3 days then 1 tab a day for 5 days (DME) 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 See Rx Instructions .Route .MEDSUPPLY Qty: 1 0RF Rx Instructions: As directed topiramate [Topamax] 100 mg tablet 100 mg PO DAILY Qty: 30 5RF rosuvastatin [Crestor] 5 mg tablet 5 mg PO DAILY Qty: 30 3RF fenofibrate nanocrystallized 145 mg tablet 145 mg PO DAILY Qty: 30 2RF baclofen 5 mg tablet See Rx Instructions .ROUTE .COMPLEX Qty: 90 0RF Dose Instruction: TAKE 1 TABLET BY MOUTH 3 TIMES DAILY FOR 30 DAYS Rx Instructions: TAKE 1 TABLET BY MOUTH 3 TIMES DAILY FOR 30 DAYS hydroxyzine HCl 25 mg tablet 25 mg PO TID PRN (Reason: itching) 15 Days Qty: 45 0RF Rx Instructions: Do not take with Clonazepam. Watch for increased drowsiness ondansetron 4 mg tablet,disintegrating 4 mg PO Q8H PRN (Reason: nausea and vomiting) Qty: 20 0RF Discharge Orders: Discharge ED (Routine); Ordered 12/17/23 Ordered By: Paige Stockton Referrals: Bill Bailey DO [Physician] - 4-7 days Vinny Hsu FNP [Primary Care Provider] - Discharge Diet: Advance as tolerated Discharge Activity: Resume usual activity Patient Instructions: Weakness (ED), Back Pain (ED) Coding Level of Care Code ED Profiling Machine Setup Operator for Chg Fwd Related Data Home Medications Medication Instructions Recorded Confirmed diclofenac sodium 1 % topical gel 2 g topical QID 08/12/23 11/15/23 Previous Rx's Medication Instructions Recorded r knee brace #1 ea 07/20/20 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 #1 ea 05/04/21 topiramate 100 mg tablet (Topamax) 100 mg PO DAILY #30 tabs 02/22/22 sertraline 50 mg tablet (Zoloft) 75 mg (1.5 x 50 mg) PO DAILY #45 05/29/22 tabs fenofibrate nanocrystallized 145 145 mg PO DAILY #30 tabs 06/27/22 mg tablet rosuvastatin 5 mg tablet (Crestor) 5 mg PO DAILY #30 tabs 06/27/22 telmisartan 40 mg tablet (Micardis) 40 mg PO DAILY #90 tabs 02/13/23 baclofen 5 mg tablet See Rx Instructions .Route 03/01/23 .COMPLEX #90 tabs hydroxyzine HCl 25 mg tablet 25 mg PO TID PRN itching 15 days 03/07/23 #45 tabs fluticasone propionate 50 2 spray intranasal BID allergy 03/26/23 mcg/actuation nasal symptoms 30 days #16 grams spray,suspension meloxicam 15 mg tablet 15 mg PO DAILY 30 days #30 tabs 08/12/23 prednisone 20 mg tablet 20 mg PO DAILY #20 tabs 09/24/23 clonazepam 1 mg tablet 1 mg PO TID PRN anxiety attack #60 11/15/23 tabs tamsulosin 0.4 mg capsule (Flomax) 0.4 mg PO DAILY 30 days #30 caps 11/15/23 ondansetron 4 mg disintegrating 4 mg PO Q8H PRN nausea and 12/03/23 tablet vomiting #20 tabs Allergies Allergy/AdvReac Type Severity Reaction Status Date / Time No Known Allergies Allergy Verified 12/17/23 17:46
--- NOTE | 2023-12-17 17:56 | ECG_ITS ---
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 Measurements Intervals [address] Rate: 64 P: 54 WV: 157 QRS: -25 QRSD: 106 T: 50 QT: 384 QTc: 399 Interpretive Statements SINUS RHYTHM BORDERLINE LEFT AXIS DEVIATION [QRS AXIS < -20] No previous ECG available for comparison Electronically Signed On 12-19-2023 22:00:47 CLINICAL VETERINARIAN by Bekah Rodriguez M.D. [id number]
[2023-12-17] MEDS: sodium chloride 0.9% 1,000 ML 999 ML IV (18:14)
[2023-12-17] MEDS: iohexol 350 mg/mL 500 mL Btl (per mL) IV (18:50)
[2023-12-17 19:01] LABS: Covid PCR NEGATIVE (Negative); Influenza A NEGATIVE (Negative); Influenza B NEGATIVE (Negative); Respiratory Syncytial Virus Ce NEGATIVE (Negative)
[2023-12-17 19:19] LABS: Basophils % 0.2 %; Eosinophils % 0.1 %; Hematocrit 38.8 % (37-53); Lymphocytes # 2.7 10^3/uL (0.8-4.8); Lymphocytes % 25.4 %; Mean Corpuscular HGB Conc 31.7 g/dL (30-55); Mean Corpuscular Hemoglobin 28.7 pg (27-33); Mean Corpuscular Volume 90.7 fl (82-101); Mean Platelet Volume 10.5 fL (7.4-10.4); Monocytes # 0.8 10^3/uL (0.2-0.9); Monocytes % 7.3 %; Neutrophils # 7.17 10^3/uL (1.8-7.7); Neutrophils % 66.7 %; Nucleated Red Blood Cells % 0 %; Platelet Count 249 10^3/cmm (157-399); Red Blood Count 4.28 10^6/uL (3.85-5.65); Red Cell Distribution Width 12.8 % (12.1-15.1); White Blood Count 10.75 10^3/uL (3.29-11.43)
[2023-12-17 19:21] LABS: Bilirubin Urine Negative (Negative); Blood Urine Negative (Negative); Glucose Urine UA Negative (Normal); Ketones Urine Negative (Negative); Leukocyte Esterase Urine Negative (Negative); Nitrate Urine Negative (Negative); Protein Urine Negative (Negative); Urine Appearance Clear (CLEAR); Urine Color Yellow (Yellow); pH Urine 7.5 (5-7)
[2023-12-17 19:25] LABS: Add Urine Microscopic? YES; Bacteria Urine None Seen /hpf; Hyaline Casts Urine 0.81 /lpf; RBC Urine 0-2 /hpf (0-2); Squamous Epithelial Cell Urine 0-5 /hpf (0-5); WBC Urine 0-5 /hpf (0-5)
[2023-12-17] MEDS: hyDRALAzine 20 mg/mL INJ 1 mL 10 MG IVP (19:30)
[2023-12-17 19:31] LABS: Specific Gravity, Urine 1.055 (1.005-1.030)
[2023-12-17 19:32] LABS: Add Urine Culture? No
[2023-12-17] MEDS: diphenhydrAMINE 50 mg/mL SDV 1mL IVP (20:00)
--- NOTE | 2023-12-17 20:01 | ECG_ITS ---
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 Measurements Intervals [place] Rate: 79 P: 56 OR: 160 QRS: -22 QRSD: 108 T: 64 QT: 379 QTc: 437 Interpretive Statements SINUS RHYTHM BORDERLINE LEFT AXIS DEVIATION [QRS AXIS < -20] Compared to ECG 12/17/2023 17:56:56 No significant changes Electronically Signed On 12-19-2023 22:00:55 INSTANT POTATO PROCESSING SUPERVISOR by Bekah Rodriguez M.D. [id number]
--- NOTE | 2023-12-17 20:01 | PC.NURSE ---
Pt c/o burning sensation t/o body stating I'm having an allergic reaction to that ct stuff or whatever you just gave me. Pt CT scan was at 1753, IV med push was at 1930. Dr. Stockton notified, new order given. Pt upset at first stating I know my body somethings wrong just tell me what's wrong. I'm burning up hot, but my body is cold. Dr. Stockton notified.
[2023-12-17 20:14] LABS: Alanine Aminotransferase 29 U/L (0-41); Alkaline Phosphatase 98 U/L (40-130); Anion Gap 12.9 (5-19); Aspartate Amino Transferase 18 U/L (0-40); Blood Urea Nitrogen 11 mg/dL (6-20); Calcium 8.4 mg/dL (8.5-10.5); Carbon Dioxide 23 mmol/L (22-29); Chloride 105 mmol/L (98-107); Creatinine Clr Calc Pharmacy 114.0335; Globulin 2.2 g/dL (1.3-4.6); Glomerular Filtration Rate 80.4 mL/min (90-130); Glucose 84 mg/dL (65-115); Lipase 30 U/L (13-60); Osmolality Calculated 283 mOsm/kg (285-295); Potassium 3.9 mmol/L (3.5-5.1); Sodium 137 mmol/L (136-145); Total Bilirubin 0.5 mg/dL (0.15-1.2); Total Protein 6.2 g/dL (6.6-8.7)
[2023-12-17 21:08] LABS: Troponin(5th) Baseline < 6 ng/L (0-15)
[2023-12-17 21:22] LABS: Troponin 5 2HR 7.07 ng/L (0-15); Troponin 5 2HR Delta 1.07001 ABS# (0-10)
== END 2023-12-17 21:47 | disposition home or self-care (01) ==
PROVIDERS: Emergency Provider Emergency Medicine; PCP Nurse Practitioner Family
DX: R53.1 Weakness (principal); M54.41 Lumbago with sciatica, right side; Z79.1 Long term (current) use of non-steroidal anti-inflammatories (NSAID); Z11.52 Encounter for screening for COVID-19
CPT/HCPCS: 0241U; 36415; 71045; 74177; 80053; 81001; 83690; 84443; 84484; 85025; 93005; 96361; 96374; 96375; 99285; J0360; J1200; J7030

== ENCOUNTER → 2023-12-19 14:36 | Outpatient (BNVA) | payer MEDICARE, MEDICAID, SELFPAY | PROVIDERS: PCP Nurse Practitioner Family; Visit Provider Orthopaedic Surgery | DX: M54.50 Low back pain, unspecified (principal); G89.29 Other chronic pain | CPT/HCPCS: 36415; 72110; 80053; 81001; 85025; 99214 ==

== ENCOUNTER → 2024-02-20 12:48 | Outpatient (BNVA) | payer MEDICARE, MEDICAID, SELFPAY | PROVIDERS: PCP Nurse Practitioner Family; Visit Provider Orthopaedic Surgery | DX: M48.062 Spinal stenosis, lumbar region with neurogenic claudication (principal) | CPT/HCPCS: 99214 ==

== ENCOUNTER 2024-02-28 21:13 | Emergency (ER) | payer MEDICARE, MEDICAID, SELFPAY ==
[2024-02-28] VITALS (11 sets, daily range): BP systolic 174–190; BP diastolic 89–111; PULSE 85–91; RESP 16–20; TEMP 36.6; O2SAT 94–97; BMI 35.9
--- NOTE | 2024-02-28 21:20 | XRR_ITS ---
PROCEDURE INFORMATION: Exam: XR Thoracic Spine Exam date and time: 02/28/2024 9:32 PM Age: 48 years old Clinical indication: Pain in thoracic spine; Patient HX: Fusion; Additional info: Upper/lower back pain post fall TECHNIQUE: Imaging protocol: Radiologic exam of the thoracic spine. Views: 3 views. COMPARISON: CR XR lumbar spine 2-3V* [id number] 02/28/2024 9:32 PM FINDINGS: Bones/joints: Posterior fusion hardware T11 and T12 without evidence of hardware failure or loosening. The disc spaces are maintained. No fracture or listhesis. Soft tissues: Unremarkable. XR/XR thoracic spine 2V [id number] IMPRESSION: 1. Posterior fusion hardware T11 and T12 without evidence of hardware failure or loosening. 2. The disc spaces are maintained. 3. No fracture or listhesis.
--- NOTE | 2024-02-28 21:20 | XRR_ITS ---
PROCEDURE INFORMATION: Exam: XR Lumbosacral Spine Exam date and time: 02/28/2024 9:32 PM Age: 48 years old Clinical indication: Pain; Lumbago; Prior surgery; Surgery date: 6+ months; Surgery type: Fusion; Additional info: Fall pain TECHNIQUE: Imaging protocol: Radiologic exam of the lumbosacral spine. Views: 2 or 3 views. COMPARISON: CR XR lumbar spine min 4V [id number] 12/19/2023 2:38 PM FINDINGS: Bones/joints: Posterior fusion hardware at L5-S1 without evidence of hardware failure or loosening. Prominent anterior disc osteophytes at L1-L2, L2-L3, L3-L4 and L4-L5. Soft tissues: Unremarkable. XR/XR lumbar spine 2-3V* [id number] IMPRESSION: 1. Posterior fusion hardware at L5-S1 without evidence of hardware failure or loosening. 2. Prominent anterior disc osteophytes at L1-L2, L2-L3, L3-L4 and L4-L5.
--- NOTE | 2024-02-28 21:20 | CTR_ITS ---
PROCEDURE INFORMATION: Exam: CT Left Upper Extremity Without Contrast, Shoulder Exam date and time: 02/28/2024 9:55 PM Age: 48 years old Clinical indication: Injury or trauma; Blunt trauma (contusions or hematomas); Patient HX: EMS arrival for fall at home. C/O left shoulder pain; Additional info: Fall pain TECHNIQUE: Imaging protocol: Computed tomography of the left upper extremity without contrast. Exam focused on the shoulder. Radiation optimization: All CT scans at this facility use at least one of these dose optimization techniques: automated exposure control; mA and/or kV adjustment per patient size (includes targeted exams where dose is matched to clinical indication); or iterative reconstruction. COMPARISON: CT cervical spin wo con* [id number] 02/28/2024 9:52 PM RADIATION DOSE METRICS: Total DLP (mGy-cm): 554.61 FINDINGS: Bones/joints: There is a 4 mm bony density just anterior to the anterior wall of the glenoid which may represent a small avulsed fracture (series 4, image 39). Soft tissues: Normal. CT/CT shoulder LT wo con* [id number] IMPRESSION: There is a 4 mm bony density just anterior to the anterior wall of the glenoid which may represent a small avulsed fracture (series 4, image 39).
--- NOTE | 2024-02-28 21:20 | ED_ITS ---
HPI - Fall General: Chief Complaint: Fall Stated Complaint: FALL Time Seen by Provider: 02/28/24 21:16 History of Present Illness: Patient brought in by EMS with c-collar in place. Patient said he fell on the ice landed on his left side now his shoulder is deformed per him hurts really bad where he cannot move it and he has worsening pain his entire spine. He says he is scheduled for surgery with Dr. Bailey on his low back for fusion within the upcoming month. Patient denies hitting his head, loss of consciousness changes in vision or hearing. Related Data Home Medications Medication Instructions Recorded Confirmed diclofenac sodium 1 % topical gel 2 g topical QID 08/12/23 02/24/24 Previous Rx's Medication Instructions Recorded sertraline 50 mg tablet (Zoloft) 75 mg (1.5 x 50 mg) PO DAILY #45 05/29/22 tabs rosuvastatin 5 mg tablet (Crestor) 5 mg PO DAILY #30 tabs 06/27/22 telmisartan 40 mg tablet (Micardis) 40 mg PO DAILY #90 tabs 02/13/23 baclofen 5 mg tablet See Rx Instructions .Route 03/01/23 .COMPLEX #90 tabs fluticasone propionate 50 2 spray intranasal BID allergy 03/26/23 mcg/actuation nasal symptoms 30 days #16 grams spray,suspension meloxicam 15 mg tablet 15 mg PO DAILY 30 days #30 tabs 08/12/23 clonazepam 1 mg tablet 1 mg PO TID PRN anxiety attack #60 11/15/23 tabs tamsulosin 0.4 mg capsule (Flomax) 0.4 mg PO DAILY 30 days #30 caps 11/15/23 gabapentin 100 mg capsule 100 mg PO BID #60 caps 01/03/24 lidocaine 5 % topical patch 1 patch topical DAILY #30 ea 01/03/24 ondansetron 4 mg disintegrating See Rx Instructions .Route 02/20/24 tablet .COMPLEX #20 tabs Allergies Allergy/AdvReac Type Severity Reaction Status Date / Time No Known Allergies Allergy Verified 02/24/24 13:22 Review of Systems General: Reports: 10 or more systems reviewed and unremarkable except in HPI and below PFSH ED PFSH: Medical History Chronic neck pain BPH associated with nocturia Hydrocele, bilateral Low back pain Elevated serum creatinine Left ankle sprain Arthritis of elbow, right, degenerative Chronic elbow pain Tendinopathy of right elbow Excessive cerumen in left ear canal Nasal congestion Otitis media, unspecified, bilateral Lung nodule Chest pain Tricompartment osteoarthritis of right knee Scabies infestation Essential hypertension Depression Anxiety Surgical History Hx of colonoscopy 2-3 yrs ago History of lumbar spinal fusion History of thoracic surgery Family History Father Cancer colon cancer Mother Cancer lung Breast cancer Social History Smoking and tobacco/nicotine status: current every day tobacco/nicotine user Physical Exam Const: COMMON NORMALS: no acute distress, average body habitus, patient oriented x3, no limitations, healthy appearing, alert and well nourished HENMT: COMMON NORMALS: normocephalic, atraumatic, hearing grossly normal bilaterally, external ears normal, Normal external nose present and moist oral mucous membranes HEAD & SCALP: normocephalic and atraumatic NOSE: Normal external nose present EXTERNAL EAR: Yes external ears normal Neck/C-Spine: COMMON NORMALS: no JVD OTHER: In c-collar Chest: COMMONS NORMALS: normal inspection of the chest and normal palpation of entire chest wall Resp: COMMON NORMALS: normal respiratory effort, No retractions, No use of accessory muscles and clear to auscultation bilaterally AUSCULTATION: clear to auscultation bilaterally Cardio: COMMON NORMALS: no JVD, regular rate, regular rhythm, S1 normal heart sound present, S2 normal heart sound present, No gallops present (Cardio), No clicks present (Cardio), No murmurs present (Cardio) and No rub (Cardio) RATE: regular rate RHYTHM: regular rhythm HEART SOUNDS: S1 normal heart sound present and S2 normal heart sound present GI: COMMON NORMALS: Normal to inspection, nondistended, normoactive bowel sounds present, Soft to palpation, non-tender, No hepatosplenomegaly present and no masses PALPATION: Yes Soft to palpation and Yes No hepatosplenomegaly present Extremity: NARRATIVE EXTREMITY EXAM: Left shoulder exquisitely tender to palpate more posterior region scapular region then anterior. No obvious step-off deformity crepitus. Limited range of motion secondary to pain Neuro: COMMON NORMALS: patient oriented x3 SENSORIUM/ORIENTATION: Yes alert Course Vital Signs: Vital signs: Vital Signs Temperature 98 F 02/28/24 21:22 Pulse Rate 88 02/28/24 21:22 Respiratory Rate 16 02/28/24 23:47 Blood Pressure 181/100 02/28/24 23:15 Pulse Oximetry 95 02/28/24 23:47 MDM - Fall Medical Decision Making Patient CT scan done of cervical spine lumbar spine thoracic spine and shoulder. All which showed no acute process except possibly small avulsion fracture of the left shoulder. Patient be placed in a sling and discharged. Patient has Suboxone at home for pain. Patient be referred to Ortho. Medical Records I reviewed the patient's medical records. Lab Data I reviewed the patient's lab results. Radiology Impressions Cervical Spine CT 02/28/24 21:20 IMPRESSION: No acute cervical spine fracture or listhesis. Lumbar Spine X-Ray 02/28/24 21:20 IMPRESSION: 1. Posterior fusion hardware at L5-S1 without evidence of hardware failure or loosening. 2. Prominent anterior disc osteophytes at L1-L2, L2-L3, L3-L4 and L4-L5. Shoulder CT 02/28/24 21:20 IMPRESSION: There is a 4 mm bony density just anterior to the anterior wall of the glenoid which may represent a small avulsed fracture (series 4, image 39). Thoracic Spine X-Ray 02/28/24 21:20 IMPRESSION: 1. Posterior fusion hardware T11 and T12 without evidence of hardware failure or loosening. 2. The disc spaces are maintained. 3. No fracture or listhesis. All radiology interpretation(s) finalized by discharge Discharge Plan Discharge Patient Disposition: Home Clinical Impression: Fall, Abnormal x-ray, Acute pain of left shoulder Condition: Stable Prescriptions: No Action sertraline [Zoloft] 50 mg tablet 75 mg PO DAILY Qty: 45 3RF telmisartan [Micardis] 40 mg tablet 40 mg PO DAILY Qty: 90 1RF fluticasone propionate 50 mcg/actuation spray,suspension 2 spray intranasal BID 30 Days Qty: 16 0RF Rx Instructions: 2 sprays each nostril BID 1 wk, then 1 spray daily 1 week, then PRN tamsulosin [Flomax] 0.4 mg capsule 0.4 mg PO DAILY 30 Days Qty: 30 1RF clonazepam 1 mg tablet 1 mg PO TID PRN (Reason: anxiety attack) Qty: 60 2RF lidocaine 5 % adhesive patch,medicated 1 patch topical DAILY Qty: 30 2RF Rx Instructions: leave on most painful area for up to 12 hrs gabapentin 100 mg capsule 100 mg PO BID Qty: 60 0RF diclofenac sodium 1 % gel 2 g topical QID meloxicam 15 mg tablet 15 mg PO DAILY 30 Days Qty: 30 1RF Rx Instructions: Do Not take with any other NSAIDs rosuvastatin [Crestor] 5 mg tablet 5 mg PO DAILY Qty: 30 3RF baclofen 5 mg tablet See Rx Instructions .ROUTE .COMPLEX Qty: 90 0RF Dose Instruction: TAKE 1 TABLET BY MOUTH 3 TIMES DAILY FOR 30 DAYS Rx Instructions: TAKE 1 TABLET BY MOUTH 3 TIMES DAILY FOR 30 DAYS ondansetron 4 mg tablet,disintegrating See Rx Instructions .ROUTE .COMPLEX Qty: 20 0RF Dose Instruction: DISSOLVE 1 TABLET ON TONGUE AND SWALLOW WITH SALIVA EVERY 8 HOURS NEEDED FOR NAUSEA AND VOMITING Rx Instructions: DISSOLVE 1 TABLET ON TONGUE AND SWALLOW WITH SALIVA EVERY 8 HOURS NEEDED FOR NAUSEA AND VOMITING Discharge Orders: Discharge ED (Routine); Ordered 02/29/24 Ordered By: Ravi Martinez Referrals: Vinny Hsu FNP [Nurse Practitioner] - 1 week Patient Instructions: Shoulder Pain (ED), Adult X-ray (ED) Activity Restrictions/Additional Instructions: CT scans of your cervical thoracic and lumbar spine did not show any acute abnormalities. The CT scan of your left shoulder showed a possible avulsion fracture/chip that may be new or old. He will be placed in a sling and he will be referred to Ortho for further evaluation and treatment. Please continue using your Suboxone as previously directed for pain control. Coding Level of Care Code ED Transportation Officer for Edil Sheikh
--- NOTE | 2024-02-28 21:20 | CTR_ITS ---
PROCEDURE INFORMATION: Exam: CT Cervical Spine Without Contrast Exam date and time: 02/28/2024 9:52 PM Age: 48 years old Clinical indication: Injury or trauma; Blunt trauma; Patient HX: EMS arrival for fall at home. C/O neck pain. ; Additional info: Fall pain TECHNIQUE: Imaging protocol: Computed tomography of the cervical spine without contrast. Radiation optimization: All CT scans at this facility use at least one of these dose optimization techniques: automated exposure control; mA and/or kV adjustment per patient size (includes targeted exams where dose is matched to clinical indication); or iterative reconstruction. COMPARISON: MR cervical spin wo con* [id number] 12/13/2020 1:06 PM RADIATION DOSE METRICS: Total DLP (mGy-cm): 217.87 FINDINGS: Bones: Prominent bridging anterior osteophytes at C4-C5, C5-C6, C6-C7 and C7-T1. Severe neural foraminal narrowing bilaterally at C5-C6 and C6-C7. No acute cervical spine fracture or listhesis. Lungs: Lung apices are normal. Soft tissues: Unremarkable. CT/CT cervical spin wo con* [id number] IMPRESSION: No acute cervical spine fracture or listhesis.
[2024-02-28] MEDS: ondansetron 2 mg/ML SDV 2 mL 4 MG IVP (23:42)
[2024-02-28] MEDS: orphenadrine 30 mg/mL Inj 2 mL 60 MG IVP (23:42)
[2024-02-28] MEDS: morphine 4 mg/mL SDV 1 mL IVP (23:47)
[2024-02-29] VITALS: PULSE 84; O2SAT 93
[2024-02-29 00:15] VITALS: O2SAT 95
[2024-02-29 00:30] VITALS: BP 186/102; PULSE 84; O2SAT 95
[2024-02-29 00:37] VITALS: BP 174/87; PULSE 88; RESP 18; O2SAT 98
[2024-02-29 00:45] VITALS: BP 174/97
[2024-02-29 02:15] VITALS: BP 138/97; O2SAT 86
--- NOTE | 2024-02-29 02:30 | PC.NURSE ---
Vital signs at 0215 charted on wrong patient.
--- NOTE | 2024-03-02 08:45 | DCPLANNER ---
Message sent to ortho for follow up on left shoulder pain -
== END 2024-02-29 00:38 | disposition home or self-care (01) ==
PROVIDERS: Emergency Provider Emergency Medicine; PCP Nurse Practitioner Family
DX: M25.512 Pain in left shoulder (principal); W19.XXXA Unspecified fall, initial encounter; R93.7 Abnormal findings on diagnostic imaging of other parts of musculoskeletal system; Z72.0 Tobacco use; I10 Essential (primary) hypertension
CPT/HCPCS: 72070; 72100; 72125; 73200; 96374; 96375; 99285; J2270; J2360; J2405

== ENCOUNTER → 2024-05-18 14:45 | Outpatient (BNVA) | payer MEDICARE, MEDICAID, SELFPAY | PROVIDERS: PCP Nurse Practitioner Family; Visit Provider Nurse Practitioner Family | DX: I10 Essential (primary) hypertension (principal); F41.9 Anxiety disorder, unspecified; R07.89 Other chest pain; R00.2 Palpitations; E78.5 Hyperlipidemia, unspecified | CPT/HCPCS: 80053; 80061; 81003; 82306; 83036; 83721; 84443; 85025 ==

== ENCOUNTER → 2024-05-26 08:58 | Outpatient (BNVA) | payer MEDICARE, MEDICAID, SELFPAY | PROVIDERS: PCP Nurse Practitioner Family; Visit Provider Internal Medicine Cardiovascular Disease | DX: R07.89 Other chest pain (principal); I49.8 Other specified cardiac arrhythmias; I49.3 Ventricular premature depolarization; I49.1 Atrial premature depolarization | CPT/HCPCS: 93242 ==

== ENCOUNTER → 2024-07-16 10:51 | Outpatient (BNVA) | payer MEDICARE, MEDICAID, SELFPAY | PROVIDERS: PCP Nurse Practitioner Family; Visit Provider Orthopaedic Surgery | DX: M48.062 Spinal stenosis, lumbar region with neurogenic claudication (principal); M54.9 Dorsalgia, unspecified | CPT/HCPCS: 72110; 99213 ==

== ENCOUNTER 2024-07-16 12:49 | Outpatient (RCR) | payer MEDICARE, MEDICAID, SELFPAY | END 2024-08-10 23:59 | disposition home or self-care (01) | LOC: SPT 12:49 | PROVIDERS: Visit Provider Orthopaedic Surgery | DX: M54.9 Dorsalgia, unspecified (principal); G89.29 Other chronic pain | CPT/HCPCS: 97161 ==

== ENCOUNTER 2024-09-11 13:12 | Outpatient (CLI) | payer MEDICARE, SELFPAY ==
--- NOTE | 2024-09-11 13:45 | MR_ITS ---
WS: [id number] MRI LUMBAR SPINE NONCONTRAST HISTORY: Back Pain COMPARISON: 08/21/2022 TECHNIQUE: Sagittal and axial multisequence imaging is submitted. C5-6 Central disc protrusion contacting the cervical cord. Posterior fusion hardware noted at T11-12. Posterior lumbar fusion at L5-S1. L4 anterolisthesis by 3 mm. L5 retrolisthesis by 3 mm. Disc spaces are narrowed and desiccated, most significant L4-5 and L5-S1. No acute fracture or marrow edema. Conus terminates normally at L1-2 disc level. L1-L2: No stenosis. L2-L3: Mild facet arthritis. No significant stenosis. L3-L4: LEFT subarticular recess stenosis. Bilateral facet joint arthritis, LEFT greater than RIGHT. LEFT foraminal disc protrusion causing moderate LEFT foraminal stenosis. Mild bilateral facet arthritis. Mild central with bilateral subarticular recess and mild RIGHT foraminal stenosis. Similar to the prior study. L4-L5: Diffuse annular disc bulge with osteophytic ridging. Ligamentum flavum hypertrophy and facet arthritis. Severe central and bilateral subarticular recess and RIGHT foraminal stenosis. Moderate LEFT foraminal stenosis. L5-S1: Osteophytic ridging with impingement on the LEFT S1 nerve root. Mild osteophytic ridging. Moderate LEFT and mild RIGHT foraminal stenosis. Paravertebral soft tissues are negative. MR/MR lumbar spine wo con* [id number] IMPRESSION: 1. Extensive spondylosis in the lumbar spine. No significant change since 08/21. 2. Prior posterior thoracic fusion at T11-12. 3. Prior posterior lumbar fusion at L5-S1. 4. L4-5: Severe central and bilateral subarticular recess and RIGHT foraminal stenosis. Moderate LEFT foraminal stenosis. There is extensive disc bulging and facet arthritis. 5. L5-S1: Moderate LEFT and mild RIGHT foraminal stenosis. There is mild osteo phytic ridging contacting the LEFT S1 nerve root. 6. L3-4: LEFT foraminal disc protrusion causing moderate LEFT foraminal stenos is. Additional degenerative changes resulting in mild central and bilateral sub articular recess and mild RIGHT foraminal stenosis.
== END 2024-09-11 13:13 | disposition home or self-care (01) ==
PROVIDERS: PCP Nurse Practitioner Family; Visit Provider Orthopaedic Surgery
DX: M54.9 Dorsalgia, unspecified (principal); M47.896 Other spondylosis, lumbar region; Z98.1 Arthrodesis status; M43.27 Fusion of spine, lumbosacral region; M48.061 Spinal stenosis, lumbar region without neurogenic claudication; M99.63 Osseous and subluxation stenosis of intervertebral foramina of lumbar region; M46.96 Unspecified inflammatory spondylopathy, lumbar region; M47.816 Spondylosis without myelopathy or radiculopathy, lumbar region; M51.369 Other intervertebral disc degeneration, lumbar region without mention of lumbar back pain or lower extremity pain
CPT/HCPCS: 72148

== ENCOUNTER → 2024-09-22 10:39 | Outpatient (BNVA) | payer OTHER, MEDICAID, SELFPAY | PROVIDERS: PCP Nurse Practitioner Family; Visit Provider Orthopaedic Surgery | DX: M48.062 Spinal stenosis, lumbar region with neurogenic claudication (principal) | CPT/HCPCS: 99214 ==

== ENCOUNTER 2024-09-28 11:00 | Outpatient (CLI) | payer OTHER, MEDICAID, SELFPAY ==
[2024-09-28 12:02] LABS: Hematocrit 41.8 % (37-53); Hemoglobin 13.20 g/dL (11.27-16.99); Mean Corpuscular HGB Conc 31.6 g/dL (30-55); Mean Corpuscular Hemoglobin 29.7 pg (27-33); Mean Corpuscular Volume 93.9 fl (82-101); Nucleated Red Blood Cells % 0 %; Platelet Count 220 10^3/cmm (157-399); Red Blood Count 4.45 10^6/uL (3.85-5.65); White Blood Count 7.05 10^3/uL (3.29-11.43)
[2024-09-28 12:08] LABS: Glucose Urine UA Negative (Normal); Nitrate Urine Negative (Negative); Specific Gravity, Urine 1.023 (1.005-1.030)
[2024-09-28 12:24] LABS: Add Urine Microscopic? YES
== END 2024-09-28 11:01 | disposition home or self-care (01) ==
PROVIDERS: PCP Nurse Practitioner Family; Visit Provider Orthopaedic Surgery
DX: Z01.818 Encounter for other preprocedural examination (principal)
CPT/HCPCS: 36415; 81001; 85025

== ENCOUNTER 2024-10-02 11:46 | Outpatient (CLI) | payer OTHER, MEDICAID, SELFPAY ==
[2024-10-02 13:09] LABS: Alanine Aminotransferase 57 U/L (0-41); Albumin Level 4.1 g/dL (3.5-5.2); Alkaline Phosphatase 117 U/L (40-130); Anion Gap 13.6 (5-19); Aspartate Amino Transferase 40 U/L (0-40); Blood Urea Nitrogen 19 mg/dL (6-20); Calcium 9.2 mg/dL (8.5-10.5); Carbon Dioxide 25 mmol/L (22-29); Chloride 101 mmol/L (98-107); Cholesterol 123 mg/dL (0-200); Globulin 3.1 g/dL (1.3-4.6); Glucose 158 mg/dL (65-115); HDL Cholesterol 26 mg/dL (60-100); Osmolality Calculated 288 mOsm/kg (285-295); Potassium 3.6 mmol/L (3.5-5.1); Sodium 136 mmol/L (136-145); Total Protein 7.2 g/dL (6.6-8.7); Triglycerides 246 mg/dL (0-150)
== END 2024-10-02 11:47 | disposition home or self-care (01) ==
LOC: LAB 11:50
PROVIDERS: Family Provider Nurse Practitioner Family; PCP Nurse Practitioner Family; Visit Provider Orthopaedic Surgery
DX: Z01.818 Encounter for other preprocedural examination (principal); E78.2 Mixed hyperlipidemia; E55.9 Vitamin D deficiency, unspecified
CPT/HCPCS: 36415; 80053; 80061; 82306

== ENCOUNTER 2024-10-09 09:02 | Day surgery (SDC) | payer OTHER, MEDICAID, SELFPAY ==
[2024-10-09] VITALS (10 sets, daily range): BP systolic 99–138; BP diastolic 47–85; PULSE 67–86; RESP 8–23; TEMP 36.4–36.8; O2SAT 93–100; BMI 39.2
--- NOTE | 2024-10-09 09:32 | W.PM.OPSUD ---
Surgery/Procedure H&P Update DATE OF PROCEDURE: October 09, 2024 DATE H&P PERFORMED: 09/22/24 H&P UPDATE INFORMATION: I have reviewed H&P completed within last 30 days, I have examined patient prior to procedure and No changes to prior documentation PREOP DIAGNOSIS: Lumbar stenosis neurogenic claudication PLANNED PROCEDURE: Operation Date: 10/09/24 10:50 Proposed Procedures p Lumbar Spine Decompression Lumbar Decompression(Not Applicable) - Bill Bailey DO
--- NOTE | 2024-10-09 10:21 | ANES.PREANE2 ---
Pre-Anesthetic Assessment Height/Weight: Height 5 ft 10 in Weight 273 lb Temp Pulse Resp BP Pulse Ox O2 Del Method 98.3 F 67 18 126/85 98 Room Air 10/09/24 09:20 10/09/24 09:20 10/09/24 09:20 10/09/24 09:20 10/09/24 09:20 10/09/24 09:20 Preop Diagnosis: Lumbar stenosis neurogenic claudication Operation Date: 10/09/24 10:50 Proposed Procedures p Lumbar Spine Decompression Lumbar Decompression(Not Applicable) - Bill Bailey, DO Was Beta Ham taken within 24 hours: N/A Was Clonidine taken within 24 hours: N/A Last intake: Intake Last Liquid Date 10/08/24 Last Liquid Time 00:00 Last Solid Date 10/08/24 Last Solid Time 00:00 Social Tobacco and No alcohol Exam alert, oriented x 3, clear to auscultation bilaterally and regular rate & rhythm Airway Cervical ROM: within normal limits Mallampati: Class IV Comments: Comments: Edentulous, large neck Anesthetic Plan ASA status: 3 Anesthesia: General Other: No prior issues with anesthesia NPO since yesterday evening BMI 39.2 History of hypertension on hydrochlorothiazide and telmisartan Recent Holter monitor completed in May of this year showing predominant sinus rhythm On chronic Suboxone, last taken 10/05/2024 Plan for GETA Medications/Allergies Home Medications ?Medication ?Instructions ?Recorded ?Confirmed ?Last Taken ?Type fluticasone propionate 50 2 spray intranasal BID allergy 03/26/23 10/08/24 Unknown Rx mcg/actuation nasal symptoms 30 days #16 grams spray,suspension tamsulosin 0.4 mg capsule (Flomax) 0.4 mg PO DAILY 30 days #30 caps 11/15/23 10/08/24 Unknown Rx prazosin 1 mg capsule 1 mg PO DAILY 03/06/24 10/08/24 10/08/24 22:00 History sodium chloride 0.65 % nasal drops 1 drp intranasal BID PRN dry nasal 03/30/24 10/08/24 Unknown Rx (Bucyrus Saline) passages 30 days #50 mL hydrochlorothiazide 25 mg tablet 25 mg PO DAILY 30 days #30 tabs 06/12/24 10/08/24 10/08/24 22:00 Rx meloxicam 15 mg tablet 15 mg PO DAILY 30 days #30 tabs 09/15/24 10/08/24 10/08/24 22:00 Rx rosuvastatin 10 mg tablet 10 mg PO DAILY 30 days #30 tabs 09/15/24 10/08/24 10/08/24 22:00 Rx clonazepam 1 mg tablet 1 mg PO TID PRN anxiety attack #60 09/16/24 10/08/24 Unknown Rx tabs cholecalciferol (vitamin D3) 1,250 50,000 unit PO .weekly 90 days #12 10/04/24 10/08/24 10/08/24 22:00 Rx mcg (50,000 unit) capsule caps hydrocodone 7.5 mg-acetaminophen 1 tab PO Q6H PRN pain 10/07/24 10/08/24 10/09/24 06:00 History 325 mg tablet plecanatide 3 mg tablet (Trulance) 3 mg PO DAILY 10/07/24 10/08/24 10/07/24 History sertraline 50 mg tablet (Zoloft) 50 mg PO DAILY 50 days #50 tabs 10/07/24 10/08/24 Unknown Rx baclofen 5 mg tablet 5 mg PO PRN 10/08/24 10/08/24 Unknown History buprenorphine 12 mg-naloxone 3 mg 1 film sublingual BID 10/08/24 10/08/24 10/05/24 History sublingual film ondansetron 4 mg disintegrating 4 mg PO PRN 10/08/24 10/08/24 Unknown History tablet potassium chloride 10 mEq 10 meq PO DAILY 10/08/24 10/08/24 10/08/24 22:00 History tablet,extended release telmisartan 80 mg tablet 80 mg PO DAILY 10/08/24 10/08/24 10/08/24 22:00 History Allergies Allergy/AdvReac Type Severity Reaction Status Date / Time No Known Allergies Allergy Verified 10/07/24 13:43 Current Medications Generic Name Dose Route Start Last Admin Trade Name Freq PRN Reason Stop Dose Admin Sodium Chloride 1,000 mls @ 30 mls/hr 10/09/24 09:15 10/09/24 09:48 Sodium Chloride 0.9% IV 10/10/24 09:14 30 mls/hr .Q24H PATRICK Administration PFSH Anesthesia Medical History (Updated 10/09/24 @ 07:24 by ANGELES Jackson) Skin exam, screening for cancer Skin lesions Skin tag Psychiatric care Axillary hidradenitis suppurativa Nasal dryness Palpitations Chronic neck pain BPH associated with nocturia Hydrocele, bilateral Low back pain Elevated serum creatinine Left ankle sprain Arthritis of elbow, right, degenerative Chronic elbow pain Tendinopathy of right elbow Excessive cerumen in left ear canal Nasal congestion Otitis media, unspecified, bilateral Lung nodule Chest pain Tricompartment osteoarthritis of right knee Scabies infestation Essential hypertension Depression Anxiety Surgical History Hx of colonoscopy 2-3 yrs ago History of lumbar spinal fusion History of thoracic surgery Family History Father Cancer colon cancer Mother Cancer lung Breast cancer Social History Smoking and tobacco/nicotine status: former use of tobacco/nicotine Data Anesthesia Cardiac Studies: Holter Monitor 05/26/24
[2024-10-09] MEDS: ceFAZolin 3,000 MG in sodium chloride 0.9% (plus) 100 ML 200 MG IV (10:46)
[2024-10-09] MEDS: lidocaine-epi 1% 20 mL INJ INJECTION (11:13)
--- NOTE | 2024-10-09 12:09 | XR_ITS ---
WS: [id number] Exam: XR lumbar spine 2-3V* [id number] Date/Time of Exam: 10/09/2024 12:09 PM Reason For Exam: OR PICS DLP: Single AP C-arm image of the lower lumbar spine is submitted. The image was obtained for preop localization purposes.
--- NOTE | 2024-10-09 12:38 | PM.OP ---
Operative Report Date of procedure: October 09, 2024 Pre-op diagnosis: Lumbar stenosis with neurogenic claudication Post-op diagnosis: same Procedure done: L4/5 laminectomy with partial facetectomy Surgeon: Bill Bailey DO Estimated blood loss (mL): 10 Procedure: L4/5 laminectomy with partial facetectomy Patient is brought to the operative suite. After undergoing anesthesia they are placed in the prone position. All areas of impingement are well padded. Patient is then prepped and draped in the normal sterile fashion. A skin incision is made over the L4/5 level. This is confirmed under c-arm guidance. A series of dilators are passed and the tubular retractor is docked on the L4 lamina. A bovie is used to clear the soft tissue off the lamina and the L 4/5 facet joint. A high speed rita is then used to perform the laminectomy and take down the medial aspect of the L 4/5 facet joint. A kerrison rongeure was then used to take down the remaining lamina and smooth the edge of the laminectomy up to the point where the ligamentum flavum attaches. Attention was then brought to the medial aspect of the facet joint. The remaining medial aspect of the superior and inferior aspect of the facet joint were taken down with the kerrison from the pedicle of L4 to L 5. The facet joint had significant hypertrophy. Attention was then brought to the Ligamentum Flavum. The ligament was taken down from the lamina of L4 to L5 and out medially to the remaining facet joint. The ligament was thick. The dura was then exposed. The dura was in good repair. The L4 nerve was then traced with a curette out the L4/5 foramen and found to be adequately decompressed. The L5 nerve was traced with a curette around the L5 pedicle. The lateral recess was opened with a kerrison helping to further decompress the L5 nerve. Wound is then irrigated copiously with saline and surgiflo is used to stop any bleeding. The tubular retractor is removed and the wound is closed with vicryl and monocryl suture. Steri strips were applied. A sterile dressing is then placed. Patient was then placed in the supine position and transferred to the PACU in stable condition.
--- NOTE | 2024-10-09 13:20 | ANE.PACU2 ---
Inpatient post-anesthesia follow up: Airway intact: Yes Vital signs: Temperature 97.5 F Pulse Rate 71 Respiratory Rate 18 Blood Pressure 118/68 Pulse Oximetry 97 Oxygen Delivery Me thod Room Air Oxygen Flow Rate 8 Fraction of Inspir ed Oxygen Hydration adequate: Yes Nausea and vomiting: No Pain level: 2 Mental status: Baseline
== END 2024-10-09 13:20 | disposition home or self-care (01) ==
PROVIDERS: PCP Nurse Practitioner Family; Visit Provider Orthopaedic Surgery
PROC: (CPT 63005; principal; 2024-10-09 10:40)
DX: M48.062 Spinal stenosis, lumbar region with neurogenic claudication (principal); I10 Essential (primary) hypertension; R00.2 Palpitations; F41.8 Other specified anxiety disorders; Z87.891 Personal history of nicotine dependence
CPT/HCPCS: 63047; 72100; 76000; J0690; J1100; J2250; J2405; J2704; J3010; J3490; J7030; J9999

== ENCOUNTER 2024-10-12 05:00 | Outpatient (RCR) | payer OTHER, MEDICAID, SELFPAY | END 2024-11-10 23:59 | disposition home or self-care (01) | LOC: SPT 05:00 | PROVIDERS: Visit Provider Specialist | DX: M17.11 Unilateral primary osteoarthritis, right knee (principal); M21.161 Varus deformity, not elsewhere classified, right knee; Z46.89 Encounter for fitting and adjustment of other specified devices | CPT/HCPCS: 20610; 99213; J1100; J2795; J3301; J9999; L1812 ==

== ENCOUNTER → 2024-10-22 07:41 | Outpatient (BNVA) | payer OTHER, MEDICAID, SELFPAY | PROVIDERS: PCP Nurse Practitioner Family; Visit Provider Orthopaedic Surgery | DX: Z98.890 Other specified postprocedural states (principal) | CPT/HCPCS: 99024 ==

== ENCOUNTER → 2024-10-29 10:44 | Outpatient (BNVA) | payer MEDICARE, MEDICAID, SELFPAY | PROVIDERS: PCP Nurse Practitioner Family; Visit Provider Nurse Practitioner Family | DX: R10.9 Unspecified abdominal pain (principal); E78.2 Mixed hyperlipidemia; I10 Essential (primary) hypertension; F41.9 Anxiety disorder, unspecified; R79.89 Other specified abnormal findings of blood chemistry; E55.9 Vitamin D deficiency, unspecified | CPT/HCPCS: 74018; 80053; 80061; 81003; 82306; 83036; 84443; 85025; 87086 ==

== ENCOUNTER → 2024-10-30 17:36 | Outpatient (BNVA) | payer MEDICARE, MEDICAID, SELFPAY | PROVIDERS: PCP Nurse Practitioner Family; Visit Provider Nurse Practitioner Family | DX: Z53.8 Procedure and treatment not carried out for other reasons (principal) | CPT/HCPCS: 80503 ==

== ENCOUNTER → 2024-11-09 14:12 | Outpatient (BNVA) | payer OTHER, MEDICAID, SELFPAY | PROVIDERS: PCP Nurse Practitioner Family; Visit Provider Specialist | DX: M17.11 Unilateral primary osteoarthritis, right knee (principal); M21.161 Varus deformity, not elsewhere classified, right knee | CPT/HCPCS: 73560; 73565 ==

== ENCOUNTER → 2024-12-01 11:43 | Outpatient (BNVA) | payer MEDICARE, MEDICAID, SELFPAY | PROVIDERS: PCP Nurse Practitioner Family; Visit Provider Nurse Practitioner Family | DX: N20.9 Urinary calculus, unspecified (principal) | CPT/HCPCS: 81000 ==

== ENCOUNTER 2024-12-07 15:29 | Outpatient (CLI) | payer MEDICARE, MEDICAID, SELFPAY ==
--- NOTE | 2024-12-07 16:00 | CT_ITS ---
WS: [id number] CT ABDOMEN AND PELVIS NONCONTRAST HISTORY: N20.1 - Calculus of ureter TECHNIQUE: Imaging performed through the abdomen and pelvis. Coronal and sagittal reformats are submitted. All CT scans at [facility] use at least one of these dose optimization techniques: automated exposure control; mA and/or kV adjustment per patient size (includes targeted exams where dose is matched to clinical indication); or iterative reconstruction. DLP: 998.93 mGy.cm COMPARISON: 12/17/2023, KUB 10/29/2024 Lower thorax: Small micronodules in the RIGHT middle lobe and lingula. Stable since 12/17/2023. Heart size is normal. Small hiatal hernia. Liver: Hepatic steatosis. Gallbladder: Prior cholecystectomy. Pancreas: Normal size and attenuation. Normal pancreatic duct. No pancreatitis or mass. Spleen: Normal. Adrenal glands: Normal. No mass. Right kidney: Normal size kidney. Nonobstructing 3 mm calcification upper pole. Normal RIGHT ureter. Left kidney: Mild perinephric stranding. Nonobstructing 4 mm calcification mid kidney. 6 mm calcification lower pole nonobstructing. No hydronephrosis. 5 mm ureteral calcification at the L3 level corresponds to the calcification noted on the radiograph. Very minimal dilatation of the more proximal ureter. Aorta: Mild atherosclerosis abdominal aorta with no aneurysm. No free fluid, intraperitoneal air or significant lymphadenopathy. GI tract: No GI tract obstruction. There are a few scattered distal colonic diverticula without acute diverticulitis. Prior appendectomy. Abdominal wall: Small umbilical hernia contains fat only. Pelvis: No free fluid or adenopathy. Nondistended urinary bladder. Osseous structures: Advanced degenerative spondylitic changes in the visualized thoracic and lumbar spines. Posterior fusion hardware at T11-T12. CT/CT kidney stone [id number] IMPRESSION: 1. Minimally obstructing 5 mm LEFT ureteral calcification at the L3 level. No significant hydronephrosis. 2. Prior appendectomy. 3. Additional nonobstructing bilateral renal calcifications. 4. Prior cholecystectomy. 5. No ascites or adenopathy.
== END 2024-12-07 15:30 | disposition home or self-care (01) ==
LOC: RAD 15:29
PROVIDERS: PCP Nurse Practitioner Family; Visit Provider Nurse Practitioner Family
DX: N20.1 Calculus of ureter (principal)
CPT/HCPCS: 74176